=== PATIENT | female | born 1990 | race Caucasian/White ===

== ENCOUNTER 2017-12-05 17:58 | Emergency (ER) | payer OTHER ==
[~2017-12-05] VITALS: Ht 162.6 cm; Wt 65.8 kg
[2017-12-05] MEDS ORDERED: IBUPROFEN 600 MG TABLET PO ONE ×2 (18:30)
--- NOTE | 2017-12-05 18:30 | NUR ---
PELVIC PAIN x 1 WEEK. CHEST PAIN x 2 DAY. FEVER, WEAKNESS, FLU SYMPTOMS. NAD NOTED. PT AAO X4, AMB WITH STEADY GAIT. RR EVEN AND STEADY GAIT. RR EVEN AND UNLABORED. PENDING MD OLIVARES.
--- NOTE | 2017-12-05 18:58 | NUR ---
URINE OBTAINED SENT TO LAB
[2017-12-05 19:00] LABS: APPEARANCE,URINE Clear (CLEAR); BILIRUBIN,URINE Negative (NEGATIVE); BLOOD, URINE Negative Ery/uL (NEGATIVE); COLOR,URINE Yellow (YELLOW); KETONES,URINE Negative (NEGATIVE); LEUKOCYTE ESTERASE ,URINE Negative (NEGATIVE); NITRITE, URINE Negative (NEGATIVE); PROTEIN,URINE Negative (NEGATIVE); UGLUCOSE Negative (NEGATIVE)
[2017-12-05 19:14] VITALS: BP 119/79
== END 2017-12-05 19:16 | disposition home or self-care (01) ==
LOC: ER 17:59
DX: R10.2 Pelvic and perineal pain (principal); R07.89 Other chest pain
CPT/HCPCS: 81000-TC; 84703-TC; A4606; Z7610

== ENCOUNTER 2018-01-17 12:24 | Emergency (ER) | payer OTHER ==
[~2018-01-17] VITALS: Ht 160 cm; Wt 68.0 kg
--- NOTE | 2018-01-17 12:41 | NUR ---
PT TO ED DT VAINAL SPOTTING THIS MORNING. NO BLEEDING REPORTED AT THIS TIME. PER PATIENT IS 5 WEEKS , VSS
--- NOTE | 2018-01-17 13:09 | NUR ---
URINE SAMPLE SENT TO LAB
[2018-01-17 13:19] LABS: APPEARANCE,URINE Clear (CLEAR); BILIRUBIN,URINE Negative (NEGATIVE); BLOOD, URINE Trace-intact Ery/uL (NEGATIVE); COLOR,URINE Yellow (YELLOW); KETONES,URINE Negative (NEGATIVE); LEUKOCYTE ESTERASE ,URINE Trace (NEGATIVE); NITRITE, URINE Negative (NEGATIVE); PH,URINE 5.5 (5.0-8.0); PROTEIN,URINE Negative (NEGATIVE); UGLUCOSE Negative (NEGATIVE); UROBILINOGEN,URINE 0.2 EU/dL (0.2)
[2018-01-17 13:26] LABS: BASOPHILS # (AUTO) 0.1 /CMM (0.0-0.2); BASOPHILS % (AUTO) 0.6 % (0.0-2.0); EOSINOPHILS % (AUTO) 0.3 % (0.0-6.0); HEMATOCRIT 33 % (33-45); HEMOGLOBIN 11.3 g/dL (11.5-14.8); LYMPHOCYTES # (AUTO) 2.5 /CMM (0.8-4.8); LYMPHOCYTES % (AUTO) 28.4 % (20.0-44.0); MEAN CORPUSCULAR HEMOGLOBIN 30 PG (26.0-33.0); MEAN CORPUSCULAR HGB CONC 34 g/dl (31.0-36.0); MEAN CORPUSCULAR VOLUME 87 fL (82-100); MONOCYTES # (AUTO) 0.5 /CMM (0.1-1.30); MONOCYTES % (AUTO) 5.7 % (2.0-12.0); NEUTROPHILS # (AUTO) 5.7 /CMM (1.8-8.9); PLATELET COUNT (AUTO) 245 /CMM (150-450); RDW COEFFICIENT OF VARIATION 13.5 (11.5-15.0); RED BLOOD CELL COUNT(AUTO) 3.81 MIL/uL (4.0-5.2); WHITE BLOOD COUNT (AUTO) 8.7 K/uL (4.3-11.0)
[2018-01-17 13:31] LABS: BACTERIA,URINE Few /HPF (None Seen); RBC,URINE 0-2 /HPF (0-2); SQUAMOUS EPITHELIAL CELL,UR Moderate /HPF (None Seen); WBC,URINE 0-3 /HPF (0-3)
--- NOTE | 2018-01-17 14:04 | NUR ---
NOT A CANDIDATE FOR [facility]OG[facility]
[2018-01-17 14:25] VITALS: BP 120/72
--- NOTE | 2018-01-17 14:34 | NUR ---
ALMA ROSA GOMEZ AT BEDSIDE
--- NOTE | 2018-01-17 14:36 | NUR ---
Patient discharged to home in stable condition. Written and verbal after care instructions given. Patient verbalizes understanding of instruction.
== END 2018-01-17 14:37 | disposition home or self-care (01) ==
LOC: ER 12:25
DX: O20.0 Threatened abortion (principal); F10.10 Alcohol abuse, uncomplicated; Z3A.01 Less than 8 weeks gestation of pregnancy
CPT/HCPCS: 36415; 76856; 81001; 84702; 84703; 85025; 99285; A4606; Z7610; 81000-TC